=== PATIENT | female | born 1975 | race Caucasian/White ===

== ENCOUNTER 2018-12-28 21:18 | Emergency (ER) | payer OTHER ==
[2018-12-28] MEDS ORDERED: MORPHINE SULFATE 2 MG/ML SYRINGE IVP PRN ×2 (21:35→22:13)
[2018-12-28] MEDS ORDERED: SODIUM CHLORIDE 0.9% 500 ML IV STA (21:35)
--- NOTE | 2018-12-28 21:38 | ED ---
General Adult HPI - General Chief complaint: Abdominal Pain Stated complaint: Abd pain Time Seen by Provider: 12/28/18 21:28 Source: patient Mode of arrival: ambulatory Limitations: no limitations - Related Data Home Medications Medication Instructions Recorded Confirmed Ibuprofen [Motrin Ib] 800 mg PO Q46H PRN 12/28/18 12/28/18 Allergies Allergy/AdvReac Type Severity Reaction Status Date / Time codeine Allergy Nausea & Verified 12/28/18 21:35 Vomiting & Diarrhea Review of Systems ROS Statement: Those systems with pertinent positive or pertinent negative responses have been documented in the HPI. ROS Other: All systems not noted in ROS Statement are negative. Past Medical History Past Medical History: Pneumonia History of Any Multi-Drug Resistant Organisms: None Reported Past Surgical History: Orthopedic Surgery Additional Past Surgical History / Comment(s): lt shoulder Past Psychological History: Anxiety, Depression Smoking Status: Current every day smoker Past Alcohol Use History: Occasional Past Drug Use History: None Reported General Exam Limitations: no limitations Course Vital Signs 12/28/18 12/28/18 21:21 23:14 Temperature 98.6 F Pulse Rate 98 87 Respiratory 16 18 Rate Blood Pressure 106/70 96/57 O2 Sat by Pulse 97 98 Oximetry Medical Decision Making - Medical Decision Making Dictation was produced using [employer] dictation software. please excuse any grammatical, word or spelling errors. Chief Complaint: 43-year-old female presents with abdominal pain 2 days. History of Present Illness: It is a 43-year-old female presents with abdominal pain 2 days. Patient states the pain is down in her right lower quadrant. Patient denies any history of abdominal surgery. He states he still has her appendix. Denies any pelvic or ovarian disease past. Patient felt nauseous no vomiting. Denies any constitutional symptoms. The ROS documented in this emergency department record has been reviewed and confirmed by me. Those systems with pertinent positive or negative responses have been documented in the HPI. All other systems are other negative and/or noncontributory. PHYSICAL EXAM: General Impression: Alert and oriented x3, not in acute distress HEENT: Normocephalic atraumatic, extra-ocular movements intact, pupils equal and reactive to light bilaterally, mucous membranes moist. Cardiovascular: Heart regular rate and rhythm, S1&S2 audible, no murmurs, rubs or gallops Chest: Lungs clear to auscultation bilaterally, no rhonchi, no wheeze, no rales Abdomen: Positive tenderness in McBurney's point, positive rebound tenderness. Musculoskeletal: Pulses present and equal in all extremities, no peripheral edema Motor: Power 5/5 bilaterally, no focal deficits noted Neurological: CN II-XII grossly intact, no focal motor or sensory deficits noted Skin: Intact with no visualized rashes Psych: Normal affect and mood ED course: 43-year-old female presents with chief complaint of abdominal pain. As upon arrival are within acceptable limits. Clinical presentation with some for surgical abdomen.Laboratory evaluation obtained. Leukocytosis of 11.9. Metabolic panel is unremarkable. Urinalysis is negative. CT abdomen and pelvis with contrast does not show any evidence of appendicitis. Appendix is visualized and does not appear to be inflamed. Transvaginal ultrasound was obtained given that there is negative appendiceal inflammation patient was having significant tenderness. There is findings of 8 mm right ovarian cyst. There is strong clinical suspicion that this is causing her symptoms. Patient given analgesia and is improved. She is told to follow-up with her [facility] for outpatient management of this. Patient told that [id number] analgesics should work well for treatment of pain symptoms. Patient is understandable and agreeable to plan disposition. - Lab Data Result diagrams: 12/28/18 21:56 12/28/18 21:56 Lab Results 12/28/18 12/28/18 12/28/18 Range/Units 21:56 21:56 23:15 WBC 11.9 H (3.8-10.6) k/uL RBC 4.41 (3.80-5.40) m/uL Hgb 13.3 (11.4-16.0) gm/dL Hct 39.0 (34.0-46.0) % MCV 88.5 (80.0-100.0) fL MCH 30.1 (25.0-35.0) pg MCHC 34.0 (31.0-37.0) g/dL RDW 13.7 (11.5-15.5) % Plt Count 280 (150-450) k/uL Neutrophils % 73 % Lymphocytes % 20 % Monocytes % 3 % Eosinophils % 2 % Basophils % 0 % Neutrophils # 8.7 H (1.3-7.7) k/uL Lymphocytes # 2.4 (1.0-4.8) k/uL Monocytes # 0.4 (0-1.0) k/uL Eosinophils # 0.3 (0-0.7) k/uL Basophils # 0.0 (0-0.2) k/uL Sodium 138 (137-145) mmol/L Potassium 4.0 (3.5-5.1) mmol/L Chloride 107 (98-107) mmol/L Carbon Dioxide 25 (22-30) mmol/L Anion Gap 6 mmol/L BUN 14 (7-17) mg/dL Creatinine 0.85 (0.52-1.04) mg/dL Est GFR (CKD-EPI)AfAm >90 (>60 ml/min/1.73 sqM) Est GFR (CKD-EPI)NonAf 84 (>60 ml/min/1.73 sqM) Glucose 106 H (74-99) mg/dL Calcium 9.1 (8.4-10.2) mg/dL Total Bilirubin 0.3 (0.2-1.3) mg/dL AST 20 (14-36) U/L ALT 27 (9-52) U/L Alkaline Phosphatase 60 (38-126) U/L Total Protein 6.0 L (6.3-8.2) g/dL Albumin 3.5 (3.5-5.0) g/dL Lipase 95 (23-300) U/L Urine Color Yellow Urine Appearance Clear (Clear) Urine pH 6.5 (5.0-8.0) Ur Specific [place] 1.050 H (1.001-1.035) Urine Protein Negative (Negative) Urine Glucose (UA) Negative (Negative) Urine Ketones Negative (Negative) Urine Blood Trace H (Negative) Urine Nitrite Negative (Negative) Urine Bilirubin Negative (Negative) Urine Urobilinogen <2.0 (<2.0) mg/dL Ur Leukocyte Esterase Negative (Negative) Urine RBC 4 (0-5) /hpf Urine WBC 1 (0-5) /hpf Ur Squamous Epith Cells 2 (0-4) /hpf Calcium Oxalate Crystal Rare H (None) /hpf Amorphous Sediment Occasional H (None) /hpf Urine Mucus Rare H (None) /hpf Disposition Clinical Impression: Ovarian cyst Disposition: HOME SELF-CARE Condition: Good Instructions (If sedation given, give patient instructions): Ovarian Cyst (ED) Is patient prescribed a controlled substance at d/c from ED?: No Referrals: Francisco Javier Warner MD [Primary Care Provider] - 1-2 days Time of Disposition: 23:51
[2018-12-28] MEDS ORDERED: MORPHINE SULFATE 4 MG/ML SYRINGE IVP PRN (21:58)
[2018-12-28 22:11] LABS: Basophils % (A) 0 %; Eosinophils # (A) 0.3 k/uL (0-0.7); Eosinophils % (A) 2 %; HGB 13.3 gm/dL (11.4-16.0); Lymphocytes # (A) 2.4 k/uL (1.0-4.8); Lymphocytes % (A) 20 %; MCH 30.1 pg (25.0-35.0); MCV 88.5 fL (80.0-100.0); Mean Platelet Volume 7.3; Monocytes # (A) 0.4 k/uL (0-1.0); Monocytes % (A) 3 %; Neutrophils # (A) 8.7 k/uL (1.3-7.7); Neutrophils % (A) 73 %; Platelet Count 280 k/uL (150-450); RBC 4.41 m/uL (3.80-5.40); RDW 13.7 % (11.5-15.5); WBC 11.9 k/uL (3.8-10.6)
[2018-12-28 22:19] LABS: ALT 27 U/L (9-52); AST 20 U/L (14-36); Albumin 3.5 g/dL (3.5-5.0); Alkaline Phosphatase 60 U/L (38-126); Anion Gap 6 mmol/L; Blood Urea Nitrogen 14 mg/dL (7-17); Calcium 9.1 mg/dL (8.4-10.2); Carbon Dioxide 25 mmol/L (22-30); Chloride 107 mmol/L (98-107); Glucose 106 mg/dL (74-99); Lipase 95 U/L (23-300); Sodium 138 mmol/L (137-145); Total Bilirubin 0.3 mg/dL (0.2-1.3)
--- NOTE | 2018-12-28 22:25 | CT ---
EXAMINATION TYPE: CT abdomen pelvis w con DATE OF EXAM: 12/28/2018 COMPARISON: None HISTORY: RLQ pain CT DLP: 597.9 mGycm Automated exposure control for dose reduction was used. TECHNIQUE: Helical acquisition of images was performed from the lung bases through the pelvis. CONTRAST: Performed without Oral Contrast and with IV Contrast, patient injected with 100 mL of Isovue 300. FINDINGS: There is mild subsegmental atelectasis at the lung bases. Heart appears normal. There is no pleural e ffusion. There is 1 cm hypodensity in the superior right lobe of the liver. This could be hemangioma. This patrice ears to enhance on the delayed images. Bile ducts are not dilated. Gallbladder is contracted. Spleen appears normal. There is no pancreatic mass. Stomach appears normal. There is no adrenal mass. Kidneys show satisfactory contrast opacification. There is no hydronephrosi s. Ureters are not dilated. Bladder distends smoothly. Uterus is anteverted. There is no free fluid i n the pelvis. There is no retroperitoneal adenopathy. There is no inguinal hernia. I see no evidence of a bowel obstruction. There are no dilated loops. There is air-filled appendix ap pears normal. There is no sign of free air. The lumbar vertebra show normal spacing and alignment. Th ere is mild atheromatous change in the abdominal aorta. I see no intestinal wall thickening. There is no mesenteric edema. There is umbilical hernia that contains fat. IMPRESSION: NEGATIVE CT SCAN ABDOMEN AND PELVIS. NORMAL APPENDIX. I DO NOT SEE A CAUSE FOR RIGHT LOWER QUADRANT P AIN.
[2018-12-28 23:15] VITALS: RESP 18
--- NOTE | 2018-12-28 23:20 | US ---
EXAMINATION TYPE: US transvaginal DATE OF EXAM: 12/28/2018 COMPARISON: NONE CLINICAL HISTORY: Pain. Pelvic pain. TECHNIQUE: Transvaginal (TV). EXAM MEASUREMENTS: Uterus: 9.3 x 4.7 x 5.1 cm Endometrial Stripe: 1.3 cm Right Ovary: 2.4 x 1.6 x 2.2 cm 1. Uterus: Anteverted wnl 2. Endometrium: wnl 3. Right Ovary: wnl 4. Left Ovary: Obscured by overlying bowel gas Spectral, color and waveform doppler imaging shows good arterial and venous flow within the right o vary; there is no evidence for ovarian torsion. 5. Bilateral Adnexa: wnl 6. Posterior cul-de-sac: wnl IMPRESSION: Normal uterus and endometrium. 8 mm cyst seen on the right ovary. Left ovary was not seen . There is normal arterial waveform in the right ovarian artery. No evidence of torsion.
[2018-12-28 23:44] LABS: Amorphous Sediment,Urine Occasional /hpf; Appearance,Urine Clear (Clear); Bilirubin,Urine Negative (Negative); Blood,Urine Trace (Negative); Calcium Oxalate Crystals,Urine Rare /hpf; Color,Urine Yellow; Glucose,Urine (UA) Negative (Negative); Ketones,Urine Negative (Negative); Leukocyte Esterase,Urine Negative (Negative); Mucus,Urine Rare /hpf; Nitrite,Urine Negative (Negative); PH, Urine 6.5 (5.0-8.0); Protein,Urine Negative (Negative); RBC,Urine 4 /hpf (0-5); Squamous Epithelial Cell,Urine 2 /hpf (0-4); Urobilinogen,Urine <2.0 mg/dL (<2.0)
[2018-12-29 00:08] VITALS: BP 96/66; PULSE 63; TEMP 98.1
== END 2018-12-29 00:05 | disposition home or self-care (01) ==
LOC: EC 21:18
DX: N83.201 Unspecified ovarian cyst, right side (principal); D72.829 Elevated white blood cell count, unspecified; F17.200 Nicotine dependence, unspecified, uncomplicated; Z88.5 Allergy status to narcotic agent
CPT/HCPCS: 36415; 80053; 83690; 85025; 81001; 93976; 76830; 74177; 99284; 96374; J2270; Q9967

== ENCOUNTER 2019-06-22 17:57 | Emergency (ER) | payer OTHER ==
[2019-06-22 18:34] VITALS: BP 116/76; PULSE 85; RESP 18; TEMP 98.3
--- NOTE | 2019-06-22 19:53 | XR ---
PROCEDURE: XR hand complete LT - 3V DATE AND TIME: 06/22/2019 6:53 PM CLINICAL INDICATION: PHH; Pain TECHNIQUE: Department protocol COMPARISON: None FINDINGS: There is no fracture or malalignment. There is index finger soft tissue swelling, the soft tissues are otherwise unremarkable. IMPRESSION: NO ACUTE PROCESS.
--- NOTE | 2019-06-22 20:21 | ED ---
Upper Extremity HPI - General Chief Complaint: Extremity Injury, Upper Stated Complaint: finger injury Time Seen by Provider: 06/22/19 19:06 Source: patient Mode of arrival: ambulatory Limitations: no limitations - History of Present Illness Initial Comments: 43-year-old female presenting today for chief complaint of left index finger pain 1 hour. Patient states just prior to arrival she sent her left index finger in a car door. She states that someone else had open it before she could remove it. Patient states she was concerned of fracture. She states that there was also a laceration that she felt might need sutures. Patient denies numbness tingling or loss sensation of finger. Patient states she is able to range however this induces pain at the left index finger patient denies any limitations or range of motion or feeling as though there is decreased strength. Remaining review of systems negative patient denies any other areas of injury. Patient is unsure of her last tetanus. Remaining review of systems negative. - Related Data Home Medications Medication Instructions Recorded Confirmed Ibuprofen [Motrin Ib] 800 mg PO Q46H PRN 12/28/18 12/28/18 Allergies Allergy/AdvReac Type Severity Reaction Status Date / Time codeine Allergy Nausea & Verified 06/22/19 18:32 Vomiting & Diarrhea morphine Allergy Unknown Verified 06/22/19 18:32 Review of Systems ROS Statement: Those systems with pertinent positive or pertinent negative responses have been documented in the HPI. ROS Other: All systems not noted in ROS Statement are negative. Past Medical History Past Medical History: Pneumonia History of Any Multi-Drug Resistant Organisms: None Reported Past Surgical History: Orthopedic Surgery Additional Past Surgical History / Comment(s): lt shoulder Past Psychological History: Anxiety, Depression Smoking Status: Current every day smoker Past Alcohol Use History: Occasional Past Drug Use History: None Reported General Exam - General Exam Comments Initial Comments: General: The patient is awake and alert, in no distress, and does not appear acutely ill. Eye: Pupils are equal, round and reactive to light, extra-ocular movements are intact. No nystagmus. There is normal conjunctiva bilaterally. No signs of icterus. Cardiovascular: There is a regular rate and rhythm. No murmur, rub or gallop is appreciated. Respiratory: Lungs are clear to auscultation, respirations are non-labored, breath sounds are equal. No wheezes, stridor, rales, or rhonchi. Musculoskeletal: Normal ROM, no tenderness. Strength 5/5. Sensation intact. Pulses equal bilaterally 2+. Patient is able to fully range at the DIP and PIP and MCP joints of all 5 digits of the left hand equal comparison with the right. These joints were isolated in the left index finger and tested individually. No evidence of limitation range of motion. Capillary refill less than 3 seconds. Neurological: A&O x 3. CN II-XII intact, There are no obvious motor or sensory deficits. Coordination appears grossly intact. Speech is normal. Skin: Skin is warm and dry and no rashes or lesions are noted. 1 cm laceration on the medial aspect of the left index finger. Linear no evidence of foreign body or exposure of underlying structures. Psychiatric: Cooperative, appropriate mood & affect, normal judgment. Limitations: no limitations Course Vital Signs 06/22/19 18:09 Temperature 98.3 F Pulse Rate 85 Respiratory 18 Rate Blood Pressure 116/76 O2 Sat by Pulse 100 Oximetry Procedures - Laceration Laceration #1 Consent Obtained: verbal consent Indication: laceration Site: hand (Left index finger) Size (cm): 1 Description: linear Depth: simple, single layer Type of Sutures: nylon Size of Sutures: 5-0 Number of Sutures: 1 Technique: simple, interrupted Patient Tolerated Procedure: well, no complications Additional Comments: Irrigated and cleansed with iodine prior to closure. Closure is performed without using local anesthetic given patient only required one suture for closure patient was agreeable with no lidocaine prior to performing procedure Medical Decision Making - Medical Decision Making 43-year-old female presenting for left index finger injury. Imaging studies reveal no acute osseous injury. Patient has no limitations in range of motion. No evidence of tendon rupture on examination. Patient has a laceration which was repaired. Tetanus updated. Patient is placed in splint and instructed to follow-up with primary care provider. Care for sutures will signs infections were discussed. Patient is to return for any limitations or decreased strength of the left index finger. Patient verbalized understanding of plan and return parameters and was discharged appearing well Disposition Clinical Impression: Laceration of left index finger, Crushing injury of left index finger Disposition: HOME SELF-CARE Condition: Good Instructions (If sedation given, give patient instructions): Care For Your Stitches (ED), Finger Laceration (ED) Additional Instructions: Please use medication as discussed. Please follow-up for suture removal in 7 days. Please return to emergency room if the symptoms increase or worsen or for any other concerns, limitations in ROM or strength of fingers as discussed, redness draining or increasing pain. Is patient prescribed a controlled substance at d/c from ED?: No Referrals: Francisco Javier Warner MD [Primary Care Provider] - 1-2 days Time of Disposition: 20:21
== END 2019-06-22 20:27 | disposition home or self-care (01) ==
LOC: EC 17:57
DX: S61.211A Laceration without foreign body of left index finger without damage to nail, initial encounter (principal); F17.200 Nicotine dependence, unspecified, uncomplicated; Z88.5 Allergy status to narcotic agent; W23.0XXA Caught, crushed, jammed, or pinched between moving objects, initial encounter; Y92.89 Other specified places as the place of occurrence of the external cause
CPT/HCPCS: 12001; 99283